=== PATIENT | male | born 1975 | race Caucasian/White ===

== ENCOUNTER 2018-03-02 01:10 | Emergency (ER) | payer OTHER ==
[~2018-03-02] VITALS: Ht 177.8 cm; Wt 90.0 kg
[2018-03-02] MEDS ORDERED: famotidine/PF 10 mg/ml inj IV ONE (01:15)
[2018-03-02] MEDS ORDERED: mag hydrox/Alum hydrox/simeth 30ml oral suspension PO ONE (01:15)
[2018-03-02] MEDS ORDERED: aspirin 81mg tab.chew PO ONE (01:15)
[2018-03-02] MEDS ORDERED: pantoprazole 40 MG vial IV ONE (01:15)
[2018-03-02] MEDS ORDERED: sucralfate 1gm/10ml UD suspension PO SCH (01:15)
[2018-03-02] MEDS ORDERED: LIDOcaine Viscous 15ml cup MM PRN (01:15)
[2018-03-02 01:32] LABS: BASOPHILS # (AUTO) 0.2 X10'3 (0-0.2); BASOPHILS % (AUTO) 1.1 % (0-1); EOSINOPHILS # (AUTO) 1.7 X10'3 (0-0.9); EOSINOPHILS % (AUTO) 11.2 % (0-6); HEMOGLOBIN 17.5 g/dl (14.0-17.9); LYMPHOCYTES # (AUTO) 1.9 X10'3 (1.1-4.8); LYMPHOCYTES % (AUTO) 12.6 % (21-51); MEAN CORPUSCULAR HGB CONC 32.5 % (33.0-36.5); MEAN CORPUSCULAR VOLUME 82.9 FL (78-98); MEAN PLATELET VOLUME 7.6 FL (7.4-10.4); MONOCYTES # (AUTO) 0.5 X10'3 (0-0.9); MONOCYTES % (AUTO) 3.4 % (2-12); NEUTROPHILS # (AUTO) 10.5 X10'3 (1.8-7.7); NEUTROPHILS % (AUTO) 71.7 % (42-75); PLATELET COUNT 399 X10'3 (140-440); RED BLOOD COUNT 6.51 X10'6 (4.70-6.10); WHITE BLOOD COUNT 14.8 X10'3 (4.5-11.0)
[2018-03-02 01:40] LABS: ALANINE AMINOTRANSFERASE 100 U/L (12-78); ALBUMIN 3.5 G/DL (3.4-5.0); ALBUMIN/GLOBULIN RATIO 0.8 (1.1-1.5); ALKALINE PHOSPHATASE 42 IU/L (46-116); ANION GAP 8 (8-16); ASPARTATE AMINO TRANSFERASE 45 U/L (10-37); BILIRUBIN,TOTAL 0.4 MG/DL (0.1-1.0); BLOOD UREA NITROGEN 17 MG/DL (7-18); BUN/CREATININE RATIO 12.1 (5.4-32.0); CALCIUM 8.9 MG/DL (8.5-10.1); CHLORIDE 98 MMOL/L (99-107); CREATININE 1.41 MG/DL (0.60-1.10); GLUCOSE 112 MG/DL (70-104); POTASSIUM 3.9 MMOL/L (3.5-5.1); SODIUM 137 MMOL/L (135-145); TOTAL CARBON DIOXIDE 31.4 MMOL/L (24-32); TOTAL PROTEIN 7.9 G/DL (6.4-8.2); eGFR 55 ML/MIN
[2018-03-02] MEDS ORDERED: hydrALAZINE 20mg/ml inj. IV PRN (01:40)
--- NOTE | 2018-03-02 01:40 | NUR ---
spoke to dr fenton about pts bp of 223/151. verbal for hydralazine 10mg q15min received and placed
[2018-03-02 01:47] LABS: MAGNESIUM 2.1 MG/DL (1.5-2.4)
[2018-03-02] MEDS ORDERED: TEST200V10 IM (01:52)
[2018-03-02] MEDS ORDERED: ANAS1TAB49 PO (01:53)
--- NOTE | 2018-03-02 01:57 | NUR ---
Dr Garcia informed pt still has c/p center of chest and that he had received his meds as prescribed, pain cont. Order for Nitroglycerine SL obtained and written as verbal order.
[2018-03-02] MEDS ORDERED: nitroGLYCERIN 0.4mg SUBLingual tab SL PRN ×2 (02:00→02:05)
[2018-03-02] MEDS ORDERED: ondansetron/PF 4mg/2ml inj IV ONE (02:05)
[2018-03-02] MEDS ORDERED: morphine 4 MG/ML inj SYRINge IV ONE (02:05)
--- NOTE | 2018-03-02 02:10 | NUR ---
Pt had a sudden onset of hyperventilation, started to sweat, c/o feeling hot after adm of NTG. Layed pt back, calming voice to him to concentrate on his breathing, cool washcloth damped to his skin on his brow, at bs. It took a few minutes and he felt better.
--- NOTE | 2018-03-02 03:25 | NUR ---
went in to check on the patient again, he said he is feeling just fine "normal" Denies c/p.
[2018-03-02] MEDS ORDERED: OMEP20CA10 PO (04:12)
[2018-03-02 04:40] VITALS: BP 164/94
== END 2018-03-02 04:43 | disposition home or self-care (01) ==
LOC: ER 01:12
DX: R07.89 Other chest pain (principal); I10 Essential (primary) hypertension; R10.13 Epigastric pain; G89.29 Other chronic pain; Z79.899 Other long term (current) drug therapy
CPT/HCPCS: 36415; 71045; 80053; 83735; 83880; 84484; 85025; 93005; 96374; 96375; 99284; C9113; J0360; J2270; J2405; J3490